=== PATIENT | female | born 1980 | race Caucasian/White ===

== ENCOUNTER → 2018-04-16 | Outpatient (CLI) | payer MEDICAID ==
--- NOTE | 2018-04-17 14:05 | EEG PRO FEE REPORT ---
EEG INTERPRETATION PATIENT NAME: MITZI CARTER ROOM#: ORDER#: [id number] DATE OF STUDY: 04/16/2018 : 1980 REFERRING MD: KIRIT SAHU M.D. MEDICATIONS: Lamictal, Felbatol History This is a 38 year old right handed woman with a history of seizures since [age] days of age with daily seizures. Her last seizure was yesterday, last EEG two years ago. This EEG was requested for seizures. EEG Interpretation This EEG was recorded in the awake and drowsy states. The awake EEG is characterized by a well organized background with a well noted and reactive posterior dominant rhythm of 10 Hz. There was Mu and wicket waves noted on the right. There was intermittent polymorphic theta and delta slowing in the right temporal-central regions. Drowsiness is characterized by slowing of the background rhythms. Photic stimulation resulted in a good driving response. Hyperventilation resulted in generalized background slowing. There were sharply contoured wave forms in the right temporal region with no definite epileptiform abnormalities were noted. The EKG showed a regular rhythm. EEG Classification 1. Intermittent polymorphic theta and delta slowing, right temporal- central EEG Impression This EEG is abnormal. It is consistent with focal cerebral dysfunction in the right temporal-central regions. No definite epileptiform abnormalities were noted. Correlation with neuroimaging would be of interest. INTERPRETING PHYSICIAN: CINDY NAVAS M.D. /: MTEFFT TT: 1346 ID: [id number] /: [id number] TD: [id number] JOB: [id number] cc:Martine MELENDREZ M.D. > MTDD
== END ==
LOC: NEURO 12:39
PROVIDERS: ATTEND Pediatrics
DX: G40.309 Generalized idiopathic epilepsy and epileptic syndromes, not intractable, without status epilepticus (principal); G80.9 Cerebral palsy, unspecified
CPT/HCPCS: 95819

== ENCOUNTER 2019-05-08 11:05 | Emergency (ER) | payer MEDICAID ==
[2019-05-08] MEDS ORDERED: DIPHENHYDRAMINE HCL 50 MG/ML VIAL IV ONE (11:33)
[2019-05-08] MEDS ORDERED: METHYLPREDNISOLONE INJ 125 MG/2 ML SDV IV ONE (11:33)
[2019-05-08] MEDS ORDERED: FAMOTIDINE INJ/PF 20 MG/2 ML SDV IV ONE (11:33)
--- NOTE | 2019-05-08 11:36 | ER Document Report ---
ED Medical Screen (RME) - General Chief Complaint: Lip Swelling Stated Complaint: SWOLLEN LIPS/EYES Primary Care Provider: THAD PEPPER MD [Primary Care Provider] - Follow up as needed Mode of Arrival: Ambulatory Information source: Patient Notes: 45-year-old female presented to ED for hives from head to toe with swelling to the face eyes and lips. She states she was treated by injectable children about a week ago with steroids Pepcid and antihistamines. She states last medication for 2 days ago and she is broken back out worse than the first time. She does not what know what her allergies were. Patient and mother are both concerned because the patient does have epilepsy. Patient is alert oriented respirations regular and unlabored but her pulse is 126 by EKG. I have greeted and performed a rapid initial assessment of this patient. A comprehensive ED assessment and evaluation of the patient, analysis of test results and completion of medical decision making process will be conducted by an additional ED providers. TRAVEL OUTSIDE OF THE [place] IN LAST 30 DAYS: No Physical Exam - Vital signs Vitals: Temp Pulse Resp BP Pulse Ox 98.5 F 144 H 22 H 116/67 100 05/08/19 11:09 05/08/19 11:09 05/08/19 11:09 05/08/19 11:09 05/08/19 11:09 Course - Vital Signs Vital signs: Temp Pulse Resp BP Pulse Ox 98.5 F 144 H 22 H 116/67 100 05/08/19 11:09 05/08/19 11:09 05/08/19 11:09 05/08/19 11:09 05/08/19 11:09 Doctor's Discharge - Discharge Referrals: THAD PEPPER MD [Primary Care Provider] - Follow up as needed
[2019-05-08] MEDS ORDERED: NORMAL SALINE 1000 ML 1,000 ML IV ONE (12:27)
--- NOTE | 2019-05-08 14:46 | ER Document Report ---
ED Allergic Reaction - General Chief Complaint: Allergic Reaction Stated Complaint: SWOLLEN LIPS/EYES Time Seen by Provider: 05/08/19 12:21 Primary Care Provider: THAD PEPPER MD [NO LOCAL MD] - Follow up as needed Mode of Arrival: Ambulatory Information source: Patient TRAVEL OUTSIDE OF THE [place] IN LAST 30 DAYS: No - HPI Notes: Patient presents with complaints of rash. She states she has had this rash for approximate 1 month. She went to an urgent care and received hydroxyzine and steroids. She states the rash cleared up but when she stopped the steroids the rash recurred. She was concerned this morning because she had some swelling of her lips as well. She denies any trouble swallowing or breathing. She has had no vomiting no fevers. No previous history of similar rashes. No new medications or new exposures. The rash over the last several days is been constant. It does radiate throughout her body. Nothing makes it better or worse. Is been moderate in intensity. - Related Data Allergies/Adverse Reactions: No Known Allergies Allergy (Unverified 05/08/19 12:09) Past Medical History - General Information source: Patient - Social History Smoking Status: Never Smoker Frequency of alcohol use: None Drug Abuse: None Family History: Reviewed & Not Pertinent Patient has suicidal ideation: No Patient has homicidal ideation: No Neurological Medical History: Reports: Hx Seizures Review of Systems - Review of Systems Constitutional: Malaise. denies: Chills, Fever Cardiovascular: denies: Chest pain, Palpitations Respiratory: denies: Cough, Short of breath Gastrointestinal: denies: Diarrhea, Vomiting -: Yes All other systems reviewed and negative Physical Exam - Vital signs Vitals: Temp Pulse Resp BP Pulse Ox 98.5 F 144 H 22 H 116/67 100 05/08/19 11:09 05/08/19 11:09 05/08/19 11:09 05/08/19 11:09 05/08/19 11:09 Interpretation: Tachycardic - General General appearance: Appears well, Alert - HEENT Head: Normocephalic, Atraumatic Eyes: Normal Pupils: PERRL Mouth/Lips: Other - Patient has some mild swelling of the upper lip. Lower lip has no swelling. Tongue has no swelling and is unremarkable. Posterior pharynx also has no swelling appreciated. Mucous membranes: Moist - Respiratory Respiratory status: No respiratory distress Chest status: Nontender Breath sounds: Normal Chest palpation: Normal - Cardiovascular Rhythm: Tachycardia Heart sounds: Normal auscultation Murmur: No - Abdominal Inspection: Normal Distension: No distension Bowel sounds: Normal Tenderness: Nontender Organomegaly: No organomegaly - Back Back: Normal, Nontender - Extremities General upper extremity: Normal inspection, Nontender, Normal color, Normal ROM, Normal temperature General lower extremity: Normal inspection, Nontender, Normal color, Normal ROM, Normal temperature, Normal weight bearing. No: Sepideh's sign - Neurological Neuro grossly intact: Yes Cognition: Normal Orientation: AAOx4 [place] Coma Scale Eye Opening: Spontaneous [place] Coma Scale Verbal: Oriented [place] Coma Scale Motor: Obeys Commands [place] Coma Scale Total: 15 Speech: Normal Motor strength normal: LUE, RUE, LLE, RLE Sensory: Normal - Psychological Associated symptoms: Normal affect, Normal mood - Skin Skin Temperature: Warm Skin Moisture: Dry Skin Color: Other - Patient has diffuse blanching urticaria. Course - Re-evaluation Re-evalutation: 05/08/19 14:43 Patient present with an acute allergic reaction with some lip swelling. However patient had no significant hypotension. There is no wheezing or shortness of breath. Patient had no tongue or other oral swelling. At this time after some medications patient's heart rate is down to 104. The lips are no longer significantly swollen. I think patient is safe to be discharged and follow-up with dermatology - Vital Signs Vital signs: Temp Pulse Resp BP Pulse Ox 98.5 F 144 H 22 H 109/85 100 05/08/19 11:09 05/08/19 11:09 05/08/19 13:01 05/08/19 13:01 05/08/19 13:01 - EKG Interpretation by [place] EKG shows normal: Sinus rhythm Rate: Tachycardia - 129 Rhythm: NSR [place]/QRS: No: Right axis deviation, Left axis deviation Discharge - Discharge Clinical Impression: Urticaria Condition: Stable Disposition: HOME, SELF-CARE Instructions: Acute Urticaria ([facility]) Additional Instructions: Please call the [employer] Dr. Alegria today to arrange follow-up as soon as possible. Prescriptions: Prednisone 50 mg PO DAILY 5 Days #5 tablet Referrals: CHRISSY ALEGRIA DO [ACTIVE STAFF] - Follow up tomorrow
[2019-05-08 15:41] VITALS: BP 123/81
--- NOTE | 2019-05-09 07:20 | EKG REPORT ---
SEVERITY:- OTHERWISE NORMAL ECG - SINUS TACHYCARDIA : Confirmed by: Stew Tejada 09-May-2019 07:19:43
== END 2019-05-08 15:41 | disposition home or self-care (01) ==
LOC: ER 11:05
DX: L50.9 Urticaria, unspecified (principal); T78.40XA Allergy, unspecified, initial encounter; R22.0 Localized swelling, mass and lump, head; X58.XXXA Exposure to other specified factors, initial encounter; R53.81 Other malaise; R00.0 Tachycardia, unspecified
CPT/HCPCS: J1200; J2930; J7030; S0028; 93005; 93010; 96361; 96374; 96375; 99283

== ENCOUNTER 2019-06-01 06:58 | Emergency (ER) | payer MEDICAID ==
--- NOTE | 2019-06-01 07:38 | ER Document Report ---
ED General - General Chief Complaint: Probable Seizure Stated Complaint: POSSIBLE SEIZURE Time Seen by Provider: 06/01/19 07:26 Primary Care Provider: EVELYNE SMILEY FNP-C [Primary Care Provider] - Follow up as needed Notes: 39-year-old woman presents to the emergency department with a history of this morning and had difficulty sitting up. She thinks that she may have had a seizure during the evening. She has a known history of seizure disorder. States she has been compliant with her medications and also was given a new medication for hives. Unable to tell me the name of that medication. Presently she is able to move all 4 extremities well and has a complaint of headache and back pain. TRAVEL OUTSIDE OF THE [place] IN LAST 30 DAYS: No - Related Data Allergies/Adverse Reactions: No Known Allergies Allergy (Unverified 05/08/19 12:09) Past Medical History - Social History Smoking Status: Never Smoker Family History: Reviewed & Not Pertinent Patient has suicidal ideation: No Patient has homicidal ideation: No Neurological Medical History: Reports: Hx Seizures Review of Systems - Review of Systems Notes: REVIEW OF SYSTEMS: CONSTITUTIONAL : Denies fever, chills, or sweats. EENT: Denies eye, ear, throat, or mouth pain or symptoms. CARDIOVASCULAR: Denies chest pain. RESPIRATORY: Denies shortness of breath, difficulty breathing, or wheezing. GASTROINTESTINAL: Denies abdominal pain. Denies nausea, vomiting, or diarrhea. Denies constipation. Last BM: GENITOURINARY: Denies difficulty urinating, painful urination, burning, frequency, or blood in urine. FEMALE GENITOURINARY: Denies vaginal bleeding, abnormal or irregular periods. LMP: MUSCULOSKELETAL: + back pain or joint pain or swelling. SKIN: Denies rash or skin lesions. HEMATOLOGIC : Denies easy bruising or bleeding. LYMPHATIC: Denies swollen, enlarged glands. NEUROLOGICAL: +headache. Denies weakness or paralysis or loss of use of either side. Denies problems with gait or speech. Denies sensory or motor loss. PSYCHIATRIC: Denies anxiety or stress or depression. ALL OTHER SYSTEMS REVIEWED AND NEGATIVE. Physical Exam - Vital signs Vitals: Resp Pulse Ox 25 H 99 06/01/19 07:10 06/01/19 07:10 - Notes Notes: PHYSICAL EXAMINATION: GENERAL: Well-appearing, well-nourished and in no acute distress. HEAD: Atraumatic, normocephalic. EYES: Pupils equal round and reactive to light, extraocular movements intact, sclera anicteric, conjunctiva are normal. ENT: nares patent, oropharynx clear without exudates. Moist mucous membranes. NECK: Normal range of motion, supple without lymphadenopathy LUNGS: Breath sounds clear to auscultation bilaterally and equal. No wheezes rales or rhonchi. HEART: Regular rate and rhythm without murmurs ABDOMEN: Soft, nontender, normoactive bowel sounds. No guarding, no rebound. No masses appreciated. EXTREMITIES: Normal range of motion, no pitting or edema. No cyanosis. NEUROLOGICAL: No focal neurological deficits. Moves all extremities spontaneously and on command. SKIN: Warm, Dry, normal turgor, no rashes or lesions noted. Course - Re-evaluation Re-evalutation: 06/01/19 11:43 Patient is doing better more alert and able to move without difficulty. Di scussed the findings of the laboratory data with the patient and her mother. She has a follow-up appointment with neurology this week. I have asked him to keep that appointment. She is also has an appointment with the [employer] regarding hives. - Vital Signs Vital signs: Temp Pulse Resp BP Pulse Ox 97.9 F 18 144/88 H 97 06/01/19 07:26 06/01/19 10:01 06/01/19 10:01 06/01/19 10:01 - Laboratory Result Diagrams: 06/01/19 08:47 06/01/19 08:47 Laboratory results interpreted by me: 06/01/19 06/01/19 08:47 10:01 Lymph % (Auto) 9.1 L Seg Neutrophils % 86.2 H Urine Protein 30 H I have reviewed laboratory data and used this information and the treatment decisions regarding the patient. Discharge - Discharge Clinical Impression: Seizure, Seizure disorder Condition: Good Disposition: HOME, SELF-CARE Instructions: Seizure, Known Epileptic ([facility]) Referrals: EVELYNE SMILEY FNP-C [Primary Care Provider] - Follow up as needed
[2019-06-01 08:56] LABS: ABSOLUTE LYMPHOCYTES (AUTO) 0.7 10^3/uL (0.5-4.7); ABSOLUTE MONOCYTES (AUTO) 0.4 10^3/uL (0.1-1.4); ABSOLUTE NEUT (AUTO) 6.9 10^3/uL (1.7-8.2); BASOPHILS % (AUTO) 0.2 % (0-2); HEMATOCRIT 37.9 % (36.0-47.0); HEMOGLOBIN 13.1 g/dL (12.0-15.5); LYMPHOCYTES % (AUTO) 9.1 % (13-45); MEAN CORPUSCULAR HEMOGLOBIN 33.2 pg (27.0-33.4); MEAN CORPUSCULAR HGB CONC 34.4 g/dL (32.0-36.0); MEAN CORPUSCULAR VOLUME 96 fl (80-97); MONOCYTES % (AUTO) 4.5 % (3-13); PLATELET COUNT 302 10^3/uL (150-450); RED BLOOD COUNT 3.94 10^6/uL (3.72-5.28); RED CELL DISTRIBUTION WIDTH 13.2 % (11.5-14.0); SEGMENTED NEUTROPHILS % (AUTO) 86.2 % (42-78); TOTAL CELLS COUNTED % (AUTO) 100 %
[2019-06-01 09:18] LABS: ALKALINE PHOSPHATASE 104 U/L (38-126); ANION GAP 12 (5-19); ASPARTATE AMINO TRANSFERASE 17 U/L (14-36); BILIRUBIN,DIRECT 0.1 mg/dL (0.0-0.4); BILIRUBIN,TOTAL 0.2 mg/dL (0.2-1.3); BLOOD UREA NITROGEN 12 mg/dL (7-20); CALCIUM 9.1 mg/dL (8.4-10.2); CARBON DIOXIDE 27 mmol/L (22-30); CHLORIDE 104 mmol/L (98-107); GLUCOSE 106 mg/dL (75-110); POTASSIUM 4.2 mmol/L (3.6-5.0)
[2019-06-01 10:34] LABS: APPEARANCE,URINE SLIGHTLY-CLOUDY; BILIRUBIN,URINE NEGATIVE (NEGATIVE); COLOR,URINE YELLOW; GLUCOSE, URINE NEGATIVE (NEGATIVE); KETONES,URINE NEGATIVE (NEGATIVE); PROTEIN,URINE 30 mg/dL (NEGATIVE); URINE SPECIFIC GRAVITY 1.023; UROBILINOGEN,URINE NEGATIVE mg/dL (<2.0)
[2019-06-01 11:57] VITALS: BP 120/79
== END 2019-06-01 12:02 | disposition home or self-care (01) ==
LOC: ER 06:58
DX: G40.909 Epilepsy, unspecified, not intractable, without status epilepticus (principal); Z79.899 Other long term (current) drug therapy; L50.9 Urticaria, unspecified; R51 Headache; M54.9 Dorsalgia, unspecified
CPT/HCPCS: 36415; 80053; 81001; 83735; 85025; 99284

== ENCOUNTER → 2019-07-01 | Outpatient (CLI) | payer MEDICAID ==
[2019-07-01 14:23] LABS: CHOLESTEROL 255.98 mg/dL (0-200); TRIGLYCERIDES 116 mg/dL (<150)
[2019-07-01 14:44] LABS: DIRECT LDL 136 mg/dL (<100)
== END ==
LOC: OD 12:39
PROVIDERS: ATTEND Internal Medicine Cardiovascular Disease
DX: R00.0 Tachycardia, unspecified (principal); Z83.42 Family history of familial hypercholesterolemia; Z82.49 Family history of ischemic heart disease and other diseases of the circulatory system
CPT/HCPCS: 36415; 80061

== ENCOUNTER → 2019-08-12 | Outpatient (CLI) | payer MEDICAID ==
[2019-08-12 15:29] LABS: ANION GAP 9 (5-19); BLOOD UREA NITROGEN 14 mg/dL (7-20); C-REACTIVE PROTEIN 19.7 mg/L (<10.0); CALCIUM 9.4 mg/dL (8.4-10.2); CARBON DIOXIDE 31 mmol/L (22-30); CHLORIDE 100 mmol/L (98-107); GLUCOSE 86 mg/dL (75-110); POTASSIUM 4.3 mmol/L (3.6-5.0)
[2019-08-14 06:36] LABS: COMPLEMENT C4 20 mg/dL (14-44)
[2019-08-14 10:17] LABS: COMPLEMENT C3 128 mg/dL (82-167)
[2019-08-14 14:08] LABS: ANTINUCLEAR ANTIBODIES Negative (Negative)
== END ==
LOC: LAB 14:33
PROVIDERS: ATTEND Internal Medicine Cardiovascular Disease
DX: R00.0 Tachycardia, unspecified (principal); R21 Rash and other nonspecific skin eruption
CPT/HCPCS: 36415; 80048; 83516; 83735; 84443; 85652; 86038; 86140; 86160; 86256